=== PATIENT | male | born 1980 | race Caucasian/White ===

== ENCOUNTER 2024-12-05 10:43 | Emergency (ER) | payer MEDICAID ==
[~2024-12-05] VITALS: Ht 172.7 cm; Wt 93.2 kg
[2024-12-05] MEDS: ketorolac trometh 30MG/ML vial 30 MG/ML VIAL IM ONE (12:39)
[2024-12-05 12:51] VITALS: BP 127/69; PULSE 70; RESP 16; TEMP 98.4; O2SAT 99
== END 2024-12-05 12:54 | disposition home or self-care (01) ==
LOC: ER 10:44
DX: M79.631 Pain in right forearm (principal)
CPT/HCPCS: 96372; 99283; J1885